=== PATIENT | male | born 1940 | race Caucasian/White ===

== ENCOUNTER 2017-10-08 10:06 | Day surgery (SDC) | payer OTHER ==
[~2017-10-08] VITALS: Ht 180.3 cm; Wt 72.1 kg
[~2017-10-08 10:06] MED LIST: ANTIVERT12.5 MG PO; CELEXA10 MG PO; COLACE100 MG PO; CONSTULOSE10 GM/15 M PO; FISH OIL 1,0001 EAC7 PO; LO-DOSE ASPIRIN81 M2 PO; LORCET 5-325 M1 EACH PO; LYRICA75 MG PO; NEPHRO-VITE,1 TABLET PO; OXYCONTIN10 MG PO; PRILOSEC20 MG PO; PROAMATINE5 MG PO; RENVELA800 MG PO; SENSIPAR30 MG PO; SYSTANE 0.3-0.1 EACH BOTH EYES; TRESIBA FL100 UNIT/1 SC; VITAMIN B122500 MCG PO; ZOFRAN4 MG PO
[2017-10-08 10:43] LABS: HEMATOCRIT 44.1 % (38.0-50.0); HEMOGLOBIN 13.5 G/DL (12.5-16.6); MCH 28.5 PG (29.0-34.0); MCHC 30.6 G/DL (30.0-36.0); PLATELET COUNT 484 K/uL (156-360); RBC DIS.WIDTH-CV 17.1 % (11.8-14.6); RBC DIS.WIDTH-SD 57.6 % (39-53); RED BLOOD COUNT 4.74 M/uL (4.00-5.50); WHITE BLOOD COUNT 8.5 K/uL (4.1-10.2)
[2017-10-08 11:01] LABS: INTER. NORMALIZED RATIO 1.3
[2017-10-08 11:03] LABS: PTT 38.8 SEC (25-37)
[2017-10-08 11:06] VITALS: BP 3/57
[2017-10-08 11:07] LABS: CHLORIDE 97 MEQ/L (99-109); CREATININE 3.2 MG/DL (0.6-1.3); GFR ESTIMATE (CALCULATED) 20 mL/min/ (58.99-99999); GLUCOSE 94 mg/dL (70-99); POTASSIUM 5.3 MEQ/L (3.7-5.4); SODIUM 131 MEQ/L (136-147); UREA NITROGEN (BUN) 22 mg/dL (9-23)
[2017-10-08 15:35] VITALS: BP 98/67
[2017-10-08 16:47] VITALS: BP 96/60
== END 2017-10-08 17:20 | disposition home or self-care (01) ==
LOC: SDC 10:06
PROVIDERS: Surgery
DX: I12.0 Hypertensive chronic kidney disease with stage 5 chronic kidney disease or end stage renal disease (principal); N18.6 End stage renal disease; Z99.2 Dependence on renal dialysis; I25.10 Atherosclerotic heart disease of native coronary artery without angina pectoris; I48.91 Unspecified atrial fibrillation; Z79.01 Long term (current) use of anticoagulants; Z79.82 Long term (current) use of aspirin; Z93.3 Colostomy status
CPT/HCPCS: 80048; 85027; 85610; 85730; 87641; 93005; J0690; J1170; J1644; J2250; J2405; J2720; S0020